=== PATIENT | female | born 1995 | race American Indian/Alaskan Native ===

== ENCOUNTER 2016-11-24 11:23 | Inpatient (IN) | payer MEDICARE ==
[2016-11-24 12:36] LABS: Urine Drugs of Abuse Note Disclamer
[2016-11-24 12:50] LABS: Bilirubin,Urine NEG (Negative); Blood,Urine NEG (Negative); Ketones,Urine NEG (Negative); Leukocyte Esterase,Urine NEG (Negative); Mucus,Urine FEW /HPF; Nitrite,Urine NEG (Negative); Protein,Urine <15 mg/dL mg/dL (Negative); Urobilinogen,Urine < 2.0 mg/dL (<2.0); WBC,Urine < 1.0 /HPF (0.0-6.0)
[2016-11-24 12:59] LABS: Basophils % (Auto) 0.7 % (0.0-1.8); Eosinophils % (Auto) 0.7 % (0.0-4.3); Hematocrit 40.5 % (30.3-42.9); Hemoglobin 13.5 gm/dl (10.1-14.3); Mean Corpuscular HGB Conc 34 % (30-34); Mean Corpuscular Hemoglobin 31 pg (28-32); Mean Corpuscular Volume 94 fl (79-97); Platelet Count 363 K/mm3 (140-440); Red Blood Count 4.33 M/mm3 (3.65-5.03); Red Cell Distribution Width 15.9 % (13.2-15.2); White Blood Count 9.2 K/mm3 (4.5-11.0)
--- NOTE | 2016-11-24 13:03 | Emergency Department Report ---
HPI - General Chief Complaint: Psych Time Seen by Provider: 11/24/16 12:39 - HPI HPI: Chief complaint: Suicidal HPI: Patient is a 21-year-old female with a history of suicide attempt 2 years ago resulting in bradycardia requiring observation overnight. Patient states she was just recently discharged from [facility] 10 days ago or suicidal thoughts. Patient states she took for ecstasy pills but nothing else. Patient also has thoughts of cutting herself or jumping in front of a car. Patient also complains of auditory hallucinations. Patient states she did drink some vodka last night. Patient is requesting to go back to [facility] but states that they don't want to take her back due to some forgery problems. Patient states she was in [facility] just prior to her last visit to [facility]. Mode of arrival: private car Source: Patient old chart and nursing notes Began: Last night. Patient states she took the medication at midnight Duration: Recurrent episodes of suicide and depression Context: See above. The nursing notes. Quality: Pain-free Severity: 0 out of 10 Improved with: Nothing Worsened with: Nothing Associated signs and symptoms: See above ED Past Medical Hx - Past Medical History Hx Diabetes: No Hx Psychiatric Treatment: Yes (SCHIZOAFFECTIVE / ANXIETY DISORDER / HOMICIDE IDEATIONS) Hx Asthma: No Hx COPD: No - Surgical History Additional Surgical History: Eye surgery. - Social History Smoking Status: Current Every Day Smoker Substance Use Type: Alcohol, Other ED Review of Systems ROS: Stated complaint: SUICIDAL,HALLUCINATIONS Other details as noted in HPI ROS Constitutional: No fever ENT: No uri symptoms Cardiovascular: No chest pain Respiratory: No sob or cough GI: No nausea vomiting or diarrhea : No dysuria frequency or urgency, Skin: No rash Neuro: No focal weakness or numbness Psych: See HPI Jose/lymph: No edema Physical Exam - Physical Exam Vital Signs: Vital Signs 11/24/16 12:04 Temperature 98.4 F Pulse Rate 74 Respiratory 18 Rate Blood Pressure 130/76 O2 Sat by Pulse 99 Oximetry Physical Exam: GENERAL: The patient is well-developed well-nourished . HEENT: Normocephalic. Atraumatic. Extraocular motions are intact. Patient has moist mucous membranes. NECK: Supple. No meningitic signs are noted. There is no adenopathy noted. CHEST/LUNGS: Clear to auscultation. There is no respiratory distress noted. HEART/CARDIOVASCULAR: Regular. There is no tachycardia. There is no gallop rub or murmur. ABDOMEN: Abdomen is soft, nontender. Patient has normal bowel sounds. There is no abdominal distention. SKIN: There is no rash. There is no edema. There is no diaphoresis. NEURO: The patient is awake, alert, and oriented. The patient has an extremely flat affect. The patient is cooperative. The patient has no focal neurologic deficits. The patient has normal speech. MUSCULOSKELETAL: There is no tenderness or deformity. There is no limitation range of motion. There is no evidence of acute injury. ED Course Vital Signs 11/24/16 12:04 Temperature 98.4 F Pulse Rate 74 Respiratory 18 Rate Blood Pressure 130/76 O2 Sat by Pulse 99 Oximetry ED Medical Decision Making - Lab Data Result diagrams: 11/24/16 12:48 11/24/16 12:48 Laboratory Tests 11/24/16 11/24/16 11/24/16 12:30 12:30 12:48 Ur Leukocyte Esterase Neg Urine WBC (Auto) < 1.0 Urine RBC (Auto) 3.0 U Epithel Cells (Auto) 2.0 Urine HCG, Qual Negative Salicylates Acetaminophen U Benzodiazepines Scrn Presumptive positive U Marijuana (THC) Screen Presumptive positive Plasma/Serum Alcohol < 0.01 11/24/16 11/24/16 12:48 12:48 Ur Leukocyte Esterase Urine WBC (Auto) Urine RBC (Auto) U Epithel Cells (Auto) Urine HCG, Qual Salicylates < 0.3 L Acetaminophen < 15.0 U Benzodiazepines Scrn U Marijuana (THC) Screen Plasma/Serum Alcohol Laboratory Tests 11/24/16 12:48 Acetaminophen < 15.0 - EKG Data -: EKG Interpreted by Me EKG shows normal: sinus rhythm Rate: normal (with first-degree AV block 69) - EKG Data When compared to previous EKG there are: changes noted (first degree AV block has been seen before but resolved and has now returned.) 11/24/16 13:23 Previous EKG is read as a sinus bradycardia but the [place] interval appears unchanged to me. Critical care attestation.: If time is entered above; I have spent that time in minutes in the direct care of this critically ill patient, excluding procedure time. ED Disposition Clinical Impression: Acute psychosis, Substance abuse, First degree AV block Overdose Qualifiers: Encounter type: initial encounter Injury intent: intentional self-harm Qualified Code(s): T50.902A - Poisoning by unspecified drugs, medicaments and biological substances, intentional self-harm, initial encounter Disposition: OP ADMITTED IP TO THIS HOSP Is pt being admited?: Yes Does the pt Need Aspirin: No Condition: Fair Referrals: PRIMARY CARE,MD [Primary Care Provider] - 3-5 Days Time of Disposition: 14:56 (admit to the hospitalist)
[2016-11-24 13:19] LABS: Anion Gap 18 mmol/L; Blood Urea Nitrogen 11 mg/dL (7-17); Calcium 9.7 mg/dL (8.4-10.2); Carbon Dioxide 24 mmol/L (22-30); Chloride 97.8 mmol/L (98-107); Glucose 87 mg/dL (65-100); Potassium 3.4 mmol/L (3.6-5.0); Sodium 136 mmol/L (137-145)
[2016-11-24] MEDS ORDERED: K-DUR PO ONE (13:44)
--- NOTE | 2016-11-24 15:17 | History and Physical Report ---
History of Present Illness Date of examination: 11/24/16 Date of admission: 11/24/16 Chief complaint: Suicidal attempt by taking Ecstacy pills History of present illness: 21-year-old obese -Pak[place] female patient with significant past medical history of suicidal attempt, admitted to [facility], discharged 10 days ago Was brought to the emergency room with history of taking ecstasy pills to harm herself. Patient also has visual and auditory hallucinations, patient has thoughts of cutting herself and jumping in front of a car. Patient denies any chest pain or shortness of breath, denies nausea vomiting or abdominal pain No history of fever or urinary symptoms Complains of mild dizziness Past History Past Medical History: other (suicidal attempt, psychosis, bradycardia) Past Surgical History: Social history: lives with family, smoking, alcohol abuse, other (recreational drug use) Family history: hypertension Medications and Allergies Allergies Allergy/AdvReac Type Severity Reaction Status Date / Time quetiapine fumarate Allergy Seizure Verified 11/24/16 12:03 [From Seroquel] aripiprazole [From Abilify] AdvReac "SHANTELL" Verified 11/24/16 12:03 divalproex sodium AdvReac Unknown Verified 11/24/16 12:03 [From Depakote] haloperidol [From Haldol] AdvReac Unknown Verified 11/24/16 12:03 haloperidol lactate AdvReac Unknown Verified 11/24/16 12:03 [From Haldol] risperidone [From Risperdal] AdvReac Unknown Verified 11/24/16 12:03 ziprasidone HCl [From Geodon] AdvReac Unknown Verified 11/24/16 12:03 ziprasidone mesylate AdvReac Unknown Verified 11/24/16 12:03 [From Geodon] Review of Systems Constitutional: no weight loss, no weight gain Ears, nose, mouth and throat: no nasal congestion, no nasal discharge Cardiovascular: no chest pain, no palpitations Respiratory: no cough, no shortness of breath Gastrointestinal: no abdominal pain, no nausea, no vomiting Genitourinary Female: no dysuria, no hematuria Musculoskeletal: no myalgias, no arthritis Integumentary: no rash, no lesions Neurological: no paralysis, no seizures Psychiatric: suicidal ideation, hallucinations, paranoia Endocrine: no cold intolerance, no heat intolerance, no polydipsia, no polyuria Hematologic/Lymphatic: no easy bruising, no easy bleeding Allergic/Immunologic: no urticaria, no allergic rhinitis Exam - Constitutional Vitals: Temp Pulse Resp BP Pulse Ox 98.4 F 74 18 130/76 99 11/24/16 12:04 11/24/16 12:04 11/24/16 12:04 11/24/16 12:04 11/24/16 12:04 General appearance: Present: no acute distress, well-nourished, other ( psychotic at times) - EENT Eyes: Present: PERRL, EOM intact - Neck Neck: Present: supple, normal ROM - Respiratory Respiratory effort: normal Respiratory: bilateral: diminished, negative: rales, rhonchi, wheezing - Cardiovascular Rhythm: regular Heart Sounds: Present: S1 & S2 - Extremities Extremities: no ischemia, pulses intact, pulses symmetrical Peripheral Pulses: within normal limits - Abdominal General gastrointestinal: Present: soft, non-tender, non-distended, normal bowel sounds - Integumentary Integumentary: Present: clear, warm - Musculoskeletal Musculoskeletal: strength equal bilaterally - Psychiatric Psychiatric: other (hallucinations/psychotic/confused at times) - Neurologic Neurologic: moves all extremities Results - Labs CBC & Chem 7: 11/24/16 12:48 11/24/16 12:48 Labs: Abnormal lab results 11/24/16 11/24/16 11/24/16 Range/Units 12:48 12:48 12:48 RDW 15.9 H (13.2-15.2) % [place] % (Auto) 7.8 H (0.0-7.3) % Sodium 136 L (137-145) mmol/L Potassium 3.4 L (3.6-5.0) mmol/L Chloride 97.8 L (98-107) mmol/L Salicylates < 0.3 L (2.8-20.0) mg/dL Assessment and Plan --Suicidal attempt/drug overdose Suicidal watch 1013 status IV fluids, supportive care --Acute psychosis Probably secondary to overdose with Ecstacy Supportive care, psych consult for assistance with management --Hypokalemia Replenish per protocol and monitor levels --Substance abuse Counseling done patient strongly advised to quit recreational drug use --Ongoing tobacco use Smoking cessation counseling done we will consult smoking cessation again Once patient is more stable --DVT prophylaxis With Lovenox --Full code --DC planning; possible discharge and transfer to inpatient psych facility When medically stable Patient's condition treatment plan discussed in detail with the patient, her nurse as well as the ED physician
[2016-11-24] MEDS ORDERED: NACL 0.9% 1000 ML 1,000 ML IV SCH (16:00)
[2016-11-24] MEDS: PEPCID PO SCH (21:46)
[2016-11-24] MEDS: LOVENOX SUB-Q SCH (21:46)
--- NOTE | 2016-11-25 00:01 | Consultation ---
History of Present Illness - Reason for Consult Consult date: 11/24/16 Reason for consult: recent suicide attempt via overdose - Chief Complaint Chief complaint: Suicidal attempt by taking Ecstacy pills - History of Present Psychiatric Illness This is a 21 year old likely undomiciled female with a past psychiatric history of PTSD and likely Bipolar Disorder with psychotic features or schizoaffective disorder (per history provided by the patient), who presents to the ER with a reported overdose on Ectasy. I have reviewed several documents that suggest that the patient is experiencing acute psychosis. Upon examination,the patient was using speech in a logical and linear manner. Her thought process was somewhat tangential and perseverative on some persecutory theme, whose veracity is yet undetermined. She frequently mentioned how suicidal she was and how she requires an inpatient hospitalization. During the conversation, she mentioned she needed to be hospitalized to evade imprisonment for an attempted murder charge. Her affect was incongruent and she did not comport well with me during the interview. Given the above information, there is a likelihood that the patient is experiencing some form of psychosis, whose etiology is unclear at the present. The differential includes acute drug intoxication and subsequent withdrawal, a primary psychotic process (ie an episode of either Bipolar disorder with psychosis or schizoaffective disorder), or malingering symptoms to avoid imprisonment. Medications and Allergies Allergies Allergy/AdvReac Type Severity Reaction Status Date / Time quetiapine fumarate Allergy Seizure Verified 11/24/16 12:03 [From Seroquel] aripiprazole [From Abilify] AdvReac "SHANTELL" Verified 11/24/16 12:03 divalproex sodium AdvReac Unknown Verified 11/24/16 12:03 [From Depakote] haloperidol [From Haldol] AdvReac Unknown Verified 11/24/16 12:03 haloperidol lactate AdvReac Unknown Verified 11/24/16 12:03 [From Haldol] risperidone [From Risperdal] AdvReac Unknown Verified 11/24/16 12:03 ziprasidone HCl [From Geodon] AdvReac Unknown Verified 11/24/16 12:03 ziprasidone mesylate AdvReac Unknown Verified 11/24/16 12:03 [From Geodon] Active Meds: Active Medications Enoxaparin Sodium (Lovenox) 40 mg SUB-Q QDAY@2200 JOSHUA Last Admin: 11/24/16 21:46 Dose: 40 mg Famotidine (Pepcid) 20 mg PO BID JOSHUA Last Admin: 11/24/16 21:46 Dose: 20 mg Sodium Chloride (Nacl 0.9% 1000 Ml) 1,000 mls @ 75 mls/hr IV DIRECT JOSHUA Lorazepam (Ativan) 1 mg IV Q6H PRN PRN Reason: Agitation Mental Status Exam - Vital signs Last Vital Signs Temp 97.5 F L 11/24/16 22:14 Pulse 65 11/24/16 22:14 Resp 20 11/24/16 22:14 BP 100/58 11/24/16 22:14 Pulse Ox 99 11/24/16 20:00 Results Result Diagrams: 11/24/16 12:48 11/24/16 12:48 All other labs normal. Assessment and Plan Assessment and plan: The plan is to obtain collateral from her mother and to continue to observe and evaluate for the presence or absence of a consistent narrative about her symptoms. This will likely inform us about the nature of her current presentation and the likely course of action upon being medically cleared. To help facilitate the process, we can complete a drug screening for ectasy. Upon reexamination tomorrow, the need to provide pharmacotheraputic intervention will be determined.
[2016-11-25 05:39] LABS: Anion Gap 19 mmol/L; BUN/Creatinine Ratio 14.54; Blood Urea Nitrogen 16 mg/dL (7-17); Calcium 8.9 mg/dL (8.4-10.2); Carbon Dioxide 20 mmol/L (22-30); Chloride 101.1 mmol/L (98-107); Glucose 93 mg/dL (65-100); Magnesium 2.1 mg/dL (1.7-2.3); Potassium 3.7 mmol/L (3.6-5.0); Sodium 136 mmol/L (137-145)
[2016-11-25] MEDS: PEPCID PO SCH ×2 (09:56→21:14)
[2016-11-25] MEDS ORDERED: FLUARIX QUAD 2016-2017(36 MOS+) IM ONE (12:00)
--- NOTE | 2016-11-25 13:45 | Progress Note ---
Assessment and Plan Assessment and plan: 1. Suicide attempt. Psychiatry following. Continue 1013 status. 2. Acute psychosis. Continue medications as per psychiatry recommendations. 3. Ecstasy overdose/substance abuse. Counseling has been done and patient strongly advised to quit recreational drug use. Psychiatry following. 4. Tobacco use. Cessation counseling has been completed. 5. DVT prophylaxis. Continue Lovenox. 6. Disposition. DC planning with possible discharge and transfer to inpatient psych facility per psychiatry recommendations. History Interval history: 21-year-old obese -[place] female patient with significant past medical history of suicidal attempt, admitted to [facility], discharged 10 days ago Was brought to the emergency room with history of taking ecstasy pills to harm herself. Patient also has visual and auditory hallucinations, patient has thoughts of cutting herself and jumping in front of a car. Hospitalist Physical - Constitutional Vitals: Temp Pulse Resp BP Pulse Ox 98.6 F 86 16 115/76 99 11/25/16 08:00 11/25/16 08:00 11/25/16 08:00 11/25/16 08:00 11/24/16 20:00 General appearance: Present: no acute distress, well-nourished, other ( psychotic at times) - EENT Eyes: Present: PERRL, EOM intact ENT: hearing intact, clear oral mucosa, dentition normal - Neck Neck: Present: supple, normal ROM - Respiratory Respiratory effort: normal Respiratory: bilateral: CTA - Cardiovascular Rhythm: regular Heart Sounds: Present: S1 & S2. Absent: gallop, rub - Extremities Extremities: no ischemia, No edema, Full ROM - Abdominal General gastrointestinal: soft, non-tender, non-distended, normal bowel sounds - Integumentary Integumentary: Present: clear, warm, dry - Neurologic Neurologic: CNII-XII intact, moves all extremities Results - Labs CBC & Chem 7: 11/24/16 12:48 11/25/16 04:42 Labs: Laboratory Last Values WBC 9.2 K/mm3 (4.5-11.0) 11/24/16 12:48 RBC 4.33 M/mm3 (3.65-5.03) 11/24/16 12:48 Hgb 13.5 gm/dl (10.1-14.3) 11/24/16 12:48 Hct 40.5 % (30.3-42.9) 11/24/16 12:48 MCV 94 fl (79-97) 11/24/16 12:48 MCH 31 pg (28-32) 11/24/16 12:48 MCHC 34 % (30-34) 11/24/16 12:48 RDW 15.9 % (13.2-15.2) H 11/24/16 12:48 Plt Count 363 K/mm3 (140-440) 11/24/16 12:48 Lymph % (Auto) 22.1 % (13.4-35.0) 11/24/16 12:48 [place] % (Auto) 7.8 % (0.0-7.3) H 11/24/16 12:48 Eos % (Auto) 0.7 % (0.0-4.3) 11/24/16 12:48 Baso % (Auto) 0.7 % (0.0-1.8) 11/24/16 12:48 Lymph # 2.0 K/mm3 (1.2-5.4) 11/24/16 12:48 [place] # 0.7 K/mm3 (0.0-0.8) 11/24/16 12:48 Eos # 0.1 K/mm3 (0.0-0.4) 11/24/16 12:48 Baso # 0.1 K/mm3 (0.0-0.1) 11/24/16 12:48 Seg Neutrophils % 68.7 % (40.0-70.0) 11/24/16 12:48 Seg Neutrophils # 6.3 K/mm3 (1.8-7.7) 11/24/16 12:48 Sodium 136 mmol/L (137-145) L 11/25/16 04:42 Potassium 3.7 mmol/L (3.6-5.0) 11/25/16 04:42 Chloride 101.1 mmol/L (98-107) 11/25/16 04:42 Carbon Dioxide 20 mmol/L (22-30) L 11/25/16 04:42 Anion Gap 19 mmol/L 11/25/16 04:42 BUN 16 mg/dL (7-17) 11/25/16 04:42 Creatinine 1.1 mg/dL (0.7-1.2) 11/25/16 04:42 Estimated GFR > 60 ml/min 11/25/16 04:42 BUN/Creatinine Ratio 14.54 % 11/25/16 04:42 Glucose 93 mg/dL (65-100) 11/25/16 04:42 Calcium 8.9 mg/dL (8.4-10.2) 11/25/16 04:42 Magnesium 2.1 mg/dL (1.7-2.3) 11/25/16 04:42 Total Creatine Kinase 393 units/L (30-135) H 11/24/16 12:48 Urine Color Yellow (Yellow) 11/24/16 12:30 Urine Turbidity Clear (Clear) 11/24/16 12:30 Urine pH 7.0 (5.0-7.0) 11/24/16 12:30 Ur Specific [place] 1.010 (1.003-1.030) 11/24/16 12:30 Urine Protein <15 mg/dl mg/dL (Negative) 11/24/16 12:30 Urine Glucose (UA) Neg mg/dL (Negative) 11/24/16 12:30 Urine Ketones Neg mg/dL (Negative) 11/24/16 12:30 Urine Blood Neg (Negative) 11/24/16 12:30 Urine Nitrite Neg (Negative) 11/24/16 12:30 Urine Bilirubin Neg (Negative) 11/24/16 12:30 Urine Urobilinogen < 2.0 mg/dL (<2.0) 11/24/16 12:30 Ur Leukocyte Esterase Neg (Negative) 11/24/16 12:30 Urine WBC (Auto) < 1.0 /HPF (0.0-6.0) 11/24/16 12:30 Urine RBC (Auto) 3.0 /HPF (0.0-6.0) 11/24/16 12:30 U Epithel Cells (Auto) 2.0 /HPF (0-13.0) 11/24/16 12:30 Urine Mucus Few /HPF 11/24/16 12:30 Urine HCG, Qual Negative (Negative) 11/24/16 12:30 Salicylates < 0.3 mg/dL (2.8-20.0) L 11/24/16 12:48 Urine Opiates Screen Presumptive negative 11/24/16 12:30 Urine Methadone Screen Presumptive negative 11/24/16 12:30 Acetaminophen < 15.0 ug/mL (10.0-30.0) 11/24/16 12:48 Ur Barbiturates Screen Presumptive negative 11/24/16 12:30 Ur Phencyclidine Scrn Presumptive negative 11/24/16 12:30 Ur Amphetamines Screen Presumptive negative 11/24/16 12:30 U Benzodiazepines Scrn Presumptive positive 11/24/16 12:30 Urine Cocaine Screen Presumptive negative 11/24/16 12:30 U Marijuana (THC) Screen Presumptive positive 11/24/16 12:30 Drugs of Abuse Note Disclamer 11/24/16 12:30 Plasma/Serum Alcohol < 0.01 gm% (0-0.07) 11/24/16 12:48
[2016-11-25] MEDS: LOVENOX SUB-Q SCH (21:14)
[2016-11-26] MEDS: PEPCID PO SCH ×2 (10:07→22:45)
--- NOTE | 2016-11-26 13:35 | Progress Note ---
Assessment and Plan Assessment and plan: 1. Suicide attempt. Psychiatry following. Continue 1013 status. 2. Acute psychosis. Continue medications as per psychiatry recommendations. 3. Ecstasy overdose/substance abuse. Counseling has been done and patient strongly advised to quit recreational drug use. Psychiatry following. 4. Tobacco use. Cessation counseling has been completed. 5. DVT prophylaxis. Continue Lovenox. 6. Disposition. DC planning with possible discharge and transfer to inpatient psych facility per psychiatry recommendations. History Interval history: 21-year-old obese -[place] female patient with significant past medical history of suicidal attempt, admitted to [facility], discharged 10 days ago Was brought to the emergency room with history of taking ecstasy pills to harm herself. Patient reports visual hallucinations last night of feces coming through the wall. Hospitalist Physical - Constitutional Vitals: Temp Pulse Resp BP Pulse Ox 98.7 F 76 16 102/57 100 11/26/16 08:00 11/26/16 10:00 11/26/16 08:00 11/26/16 08:00 11/26/16 10:00 General appearance: Present: no acute distress, well-nourished, other ( psychotic at times) - EENT Eyes: Present: PERRL, EOM intact ENT: hearing intact, clear oral mucosa, dentition normal - Neck Neck: Present: supple, normal ROM - Respiratory Respiratory effort: normal Respiratory: bilateral: CTA - Cardiovascular Rhythm: regular Heart Sounds: Present: S1 & S2. Absent: gallop, rub - Extremities Extremities: no ischemia, No edema, Full ROM - Abdominal General gastrointestinal: soft, non-tender, non-distended, normal bowel sounds - Integumentary Integumentary: Present: clear, warm, dry - Neurologic Neurologic: CNII-XII intact, moves all extremities Results - Labs CBC & Chem 7: 11/24/16 12:48 11/25/16 04:42 Labs: Laboratory Last Values WBC 9.2 K/mm3 (4.5-11.0) 11/24/16 12:48 RBC 4.33 M/mm3 (3.65-5.03) 11/24/16 12:48 Hgb 13.5 gm/dl (10.1-14.3) 11/24/16 12:48 Hct 40.5 % (30.3-42.9) 11/24/16 12:48 MCV 94 fl (79-97) 11/24/16 12:48 MCH 31 pg (28-32) 11/24/16 12:48 MCHC 34 % (30-34) 11/24/16 12:48 RDW 15.9 % (13.2-15.2) H 11/24/16 12:48 Plt Count 363 K/mm3 (140-440) 11/24/16 12:48 Lymph % (Auto) 22.1 % (13.4-35.0) 11/24/16 12:48 [place] % (Auto) 7.8 % (0.0-7.3) H 11/24/16 12:48 Eos % (Auto) 0.7 % (0.0-4.3) 11/24/16 12:48 Baso % (Auto) 0.7 % (0.0-1.8) 11/24/16 12:48 Lymph # 2.0 K/mm3 (1.2-5.4) 11/24/16 12:48 [place] # 0.7 K/mm3 (0.0-0.8) 11/24/16 12:48 Eos # 0.1 K/mm3 (0.0-0.4) 11/24/16 12:48 Baso # 0.1 K/mm3 (0.0-0.1) 11/24/16 12:48 Seg Neutrophils % 68.7 % (40.0-70.0) 11/24/16 12:48 Seg Neutrophils # 6.3 K/mm3 (1.8-7.7) 11/24/16 12:48 Sodium 136 mmol/L (137-145) L 11/25/16 04:42 Potassium 3.7 mmol/L (3.6-5.0) 11/25/16 04:42 Chloride 101.1 mmol/L (98-107) 11/25/16 04:42 Carbon Dioxide 20 mmol/L (22-30) L 11/25/16 04:42 Anion Gap 19 mmol/L 11/25/16 04:42 BUN 16 mg/dL (7-17) 11/25/16 04:42 Creatinine 1.1 mg/dL (0.7-1.2) 11/25/16 04:42 Estimated GFR > 60 ml/min 11/25/16 04:42 BUN/Creatinine Ratio 14.54 % 11/25/16 04:42 Glucose 93 mg/dL (65-100) 11/25/16 04:42 Calcium 8.9 mg/dL (8.4-10.2) 11/25/16 04:42 Magnesium 2.1 mg/dL (1.7-2.3) 11/25/16 04:42 Total Creatine Kinase 393 units/L (30-135) H 11/24/16 12:48 Urine Color Yellow (Yellow) 11/24/16 12:30 Urine Turbidity Clear (Clear) 11/24/16 12:30 Urine pH 7.0 (5.0-7.0) 11/24/16 12:30 Ur Specific [place] 1.010 (1.003-1.030) 11/24/16 12:30 Urine Protein <15 mg/dl mg/dL (Negative) 11/24/16 12:30 Urine Glucose (UA) Neg mg/dL (Negative) 11/24/16 12:30 Urine Ketones Neg mg/dL (Negative) 11/24/16 12:30 Urine Blood Neg (Negative) 11/24/16 12:30 Urine Nitrite Neg (Negative) 11/24/16 12:30 Urine Bilirubin Neg (Negative) 11/24/16 12:30 Urine Urobilinogen < 2.0 mg/dL (<2.0) 11/24/16 12:30 Ur Leukocyte Esterase Neg (Negative) 11/24/16 12:30 Urine WBC (Auto) < 1.0 /HPF (0.0-6.0) 11/24/16 12:30 Urine RBC (Auto) 3.0 /HPF (0.0-6.0) 11/24/16 12:30 U Epithel Cells (Auto) 2.0 /HPF (0-13.0) 11/24/16 12:30 Urine Mucus Few /HPF 11/24/16 12:30 Urine HCG, Qual Negative (Negative) 11/24/16 12:30 Salicylates < 0.3 mg/dL (2.8-20.0) L 11/24/16 12:48 Urine Opiates Screen Presumptive negative 11/24/16 12:30 Urine Methadone Screen Presumptive negative 11/24/16 12:30 Acetaminophen < 15.0 ug/mL (10.0-30.0) 11/24/16 12:48 Ur Barbiturates Screen Presumptive negative 11/24/16 12:30 Ur Phencyclidine Scrn Presumptive negative 11/24/16 12:30 Ur Amphetamines Screen Presumptive negative 11/24/16 12:30 U Benzodiazepines Scrn Presumptive positive 11/24/16 12:30 Urine Cocaine Screen Presumptive negative 11/24/16 12:30 U Marijuana (THC) Screen Presumptive positive 11/24/16 12:30 Drugs of Abuse Note Disclamer 11/24/16 12:30 Plasma/Serum Alcohol < 0.01 gm% (0-0.07) 11/24/16 12:48
[2016-11-26] MEDS: LOVENOX SUB-Q SCH (22:45)
[2016-11-27] MEDS: ATIVAN IV PRN (04:16)
[2016-11-27] MEDS: PEPCID PO SCH ×2 (10:07→21:52)
--- NOTE | 2016-11-27 14:58 | Progress Note ---
Assessment and Plan Assessment and plan: 1. Suicide attempt. Psychiatry following. Continue 1013 status. 2. Acute psychosis. Continue medications as per psychiatry recommendations. 3. Ecstasy overdose/substance abuse. Counseling has been done and patient strongly advised to quit recreational drug use. Psychiatry following. 4. Tobacco use. Cessation counseling has been completed. 5. DVT prophylaxis. Continue Lovenox. She is medically cleared for inpatient psyche History Interval history: f/u suicidal attempt Patient seen at the bedside; admits to auditary hallucinations- voices tell her to kill herself and that she is better off Hospitalist Physical - Constitutional Vitals: Temp Pulse Resp BP Pulse Ox 98.0 F 101 H 18 108/65 100 11/26/16 20:45 11/27/16 03:00 11/26/16 20:45 11/26/16 20:45 11/26/16 20:45 General appearance: Present: no acute distress, well-nourished, other ( psychotic at times) - EENT Eyes: Present: PERRL, EOM intact. Absent: scleral icterus, conjunctival injection ENT: hearing intact, clear oral mucosa, no oropharyngeal erythema, no poor dentition - Neck Neck: Present: supple, normal ROM. Absent: enlarged thyroid, masses or JVD - Respiratory Respiratory effort: normal Respiratory: negative: diminished, rales, rhonchi, wheezing - Cardiovascular Rhythm: regular Heart Sounds: Present: S1 & S2. Absent: gallop - Extremities Extremities: no ischemia, pulses intact, pulses symmetrical, No edema Peripheral Pulses: within normal limits - Abdominal General gastrointestinal: soft, non-tender, non-distended, normal bowel sounds - Integumentary Integumentary: Present: clear - Psychiatric Psychiatric: agitated, other (auditary hallucinations ) - Neurologic Neurologic: CNII-XII intact, moves all extremities Results - Labs CBC & Chem 7: 11/24/16 12:48 11/25/16 04:42 Labs: Laboratory Last Values WBC 9.2 K/mm3 (4.5-11.0) 11/24/16 12:48 RBC 4.33 M/mm3 (3.65-5.03) 11/24/16 12:48 Hgb 13.5 gm/dl (10.1-14.3) 11/24/16 12:48 Hct 40.5 % (30.3-42.9) 11/24/16 12:48 MCV 94 fl (79-97) 11/24/16 12:48 MCH 31 pg (28-32) 11/24/16 12:48 MCHC 34 % (30-34) 11/24/16 12:48 RDW 15.9 % (13.2-15.2) H 11/24/16 12:48 Plt Count 363 K/mm3 (140-440) 11/24/16 12:48 Lymph % (Auto) 22.1 % (13.4-35.0) 11/24/16 12:48 [place] % (Auto) 7.8 % (0.0-7.3) H 11/24/16 12:48 Eos % (Auto) 0.7 % (0.0-4.3) 11/24/16 12:48 Baso % (Auto) 0.7 % (0.0-1.8) 11/24/16 12:48 Lymph # 2.0 K/mm3 (1.2-5.4) 11/24/16 12:48 [place] # 0.7 K/mm3 (0.0-0.8) 11/24/16 12:48 Eos # 0.1 K/mm3 (0.0-0.4) 11/24/16 12:48 Baso # 0.1 K/mm3 (0.0-0.1) 11/24/16 12:48 Seg Neutrophils % 68.7 % (40.0-70.0) 11/24/16 12:48 Seg Neutrophils # 6.3 K/mm3 (1.8-7.7) 11/24/16 12:48 Sodium 136 mmol/L (137-145) L 11/25/16 04:42 Potassium 3.7 mmol/L (3.6-5.0) 11/25/16 04:42 Chloride 101.1 mmol/L (98-107) 11/25/16 04:42 Carbon Dioxide 20 mmol/L (22-30) L 11/25/16 04:42 Anion Gap 19 mmol/L 11/25/16 04:42 BUN 16 mg/dL (7-17) 11/25/16 04:42 Creatinine 1.1 mg/dL (0.7-1.2) 11/25/16 04:42 Estimated GFR > 60 ml/min 11/25/16 04:42 BUN/Creatinine Ratio 14.54 % 11/25/16 04:42 Glucose 93 mg/dL (65-100) 11/25/16 04:42 Calcium 8.9 mg/dL (8.4-10.2) 11/25/16 04:42 Magnesium 2.1 mg/dL (1.7-2.3) 11/25/16 04:42 Total Creatine Kinase 393 units/L (30-135) H 11/24/16 12:48 Urine Color Yellow (Yellow) 11/24/16 12:30 Urine Turbidity Clear (Clear) 11/24/16 12:30 Urine pH 7.0 (5.0-7.0) 11/24/16 12:30 Ur Specific [place] 1.010 (1.003-1.030) 11/24/16 12:30 Urine Protein <15 mg/dl mg/dL (Negative) 11/24/16 12:30 Urine Glucose (UA) Neg mg/dL (Negative) 11/24/16 12:30 Urine Ketones Neg mg/dL (Negative) 11/24/16 12:30 Urine Blood Neg (Negative) 11/24/16 12:30 Urine Nitrite Neg (Negative) 11/24/16 12:30 Urine Bilirubin Neg (Negative) 11/24/16 12:30 Urine Urobilinogen < 2.0 mg/dL (<2.0) 11/24/16 12:30 Ur Leukocyte Esterase Neg (Negative) 11/24/16 12:30 Urine WBC (Auto) < 1.0 /HPF (0.0-6.0) 11/24/16 12:30 Urine RBC (Auto) 3.0 /HPF (0.0-6.0) 11/24/16 12:30 U Epithel Cells (Auto) 2.0 /HPF (0-13.0) 11/24/16 12:30 Urine Mucus Few /HPF 11/24/16 12:30 Urine HCG, Qual Negative (Negative) 11/24/16 12:30 Salicylates < 0.3 mg/dL (2.8-20.0) L 11/24/16 12:48 Urine Opiates Screen Presumptive negative 11/24/16 12:30 Urine Methadone Screen Presumptive negative 11/24/16 12:30 Acetaminophen < 15.0 ug/mL (10.0-30.0) 11/24/16 12:48 Ur Barbiturates Screen Presumptive negative 11/24/16 12:30 Ur Phencyclidine Scrn Presumptive negative 11/24/16 12:30 Ur Amphetamines Screen Presumptive negative 11/24/16 12:30 U Benzodiazepines Scrn Presumptive positive 11/24/16 12:30 Urine Cocaine Screen Presumptive negative 11/24/16 12:30 U Marijuana (THC) Screen Presumptive positive 11/24/16 12:30 Drugs of Abuse Note Disclamer 11/24/16 12:30 Plasma/Serum Alcohol < 0.01 gm% (0-0.07) 11/24/16 12:48
--- NOTE | 2016-11-27 18:28 | Progress Note ---
Subjective - Reason for Consult Consult date: 11/27/16 Reason for consult: follow up for psychiatric management - Chief Complaint Chief complaint: Suicidal attempt by taking Ecstasy pills Mental Status Exam - Vital signs Last Vital Signs Temp 98.0 F 11/26/16 20:45 Pulse 101 H 11/27/16 11:00 Resp 18 11/26/16 20:45 BP 108/65 11/26/16 20:45 Pulse Ox 100 11/26/16 20:45 - Exam Narrative exam: She is reporting auditory hallucinations and depression. She discussed how she will go to custodial if she does not go to a 30 day treatment facility for substance abuse and mental health. Patient relates sleep is: poor Energy levels are: fair Appetite is: fair Appearance: Patient appears much older than stated age, she appears to malnutritioned Behavior: cooperative Cooperation: cooperative Insight/Judgment: limited/limited Level of cognition: fair Level of consciousness: alert Knowledge: fair Speech: regular rate and rhythm Thought processes: logical/goal oriented Thought content: depression Perceptions: auditory hallucinations Orientation: time, place, person Assessment and Plan The motivation for outpatient treatment and need for a supportive/therapeutic environment is best accomplished in a partial hospitalization setting/lodging. The assessment services department will facilitate her admission there. We recommend a voluntary status for her to accomplish this goal of treatment. The recommendations were discussed with Dr. Grant, hospitalist.
[2016-11-27] MEDS: LOVENOX SUB-Q SCH (21:52)
[2016-11-28] MEDS: ATIVAN IV PRN ×2 (02:02→10:49)
[2016-11-28 06:12] LABS: Anion Gap 18 mmol/L; BUN/Creatinine Ratio 18.88; Blood Urea Nitrogen 17 mg/dL (7-17); Calcium 8.8 mg/dL (8.4-10.2); Carbon Dioxide 21 mmol/L (22-30); Chloride 103.7 mmol/L (98-107); Glucose 90 mg/dL (65-100); Potassium 3.8 mmol/L (3.6-5.0); Sodium 139 mmol/L (137-145)
[2016-11-28] MEDS: PEPCID PO SCH (10:32)
[2016-11-28] MEDS ORDERED: FLUARIX QUAD 2016-2017(36 MOS+) IM ONE (12:00)
--- NOTE | 2016-11-28 15:04 | Progress Note ---
Assessment and Plan Assessment and plan: 1. Suicide attempt. Psychiatry following. Continue 1013 status. 2. Acute psychosis. Continue medications as per psychiatry recommendations. 3. Ecstasy overdose/substance abuse. Counseling has been done and patient strongly advised to quit recreational drug use. Psychiatry following. 4. Tobacco use. Cessation counseling has been completed. 5. DVT prophylaxis. Continue Lovenox. She is medically cleared for inpatient psyche -awaiting placement History Interval history: f/u suicidal attempt Patient seen at the bedside; report that she feels better today Hospitalist Physical - Constitutional Vitals: Temp Pulse Resp BP Pulse Ox 98.9 F 65 20 127/76 99 11/28/16 08:00 11/28/16 08:21 11/28/16 08:00 11/28/16 08:00 11/27/16 20:36 General appearance: Present: no acute distress, well-nourished, other ( psychotic at times) - EENT Eyes: Present: PERRL, EOM intact. Absent: scleral icterus, exopthalmos ENT: hearing intact, clear oral mucosa, no oropharyngeal erythema, no poor dentition - Neck Neck: Present: supple, normal ROM. Absent: enlarged thyroid, masses or JVD - Respiratory Respiratory effort: normal Respiratory: negative: diminished, rales, rhonchi, wheezing - Cardiovascular Rhythm: regular Heart Sounds: Present: S1 & S2. Absent: gallop - Extremities Extremities: no ischemia, pulses intact, pulses symmetrical, No edema Peripheral Pulses: within normal limits - Abdominal General gastrointestinal: soft, non-tender, non-distended - Integumentary Integumentary: Present: clear - Psychiatric Psychiatric: cooperative - Neurologic Neurologic: CNII-XII intact, focal deficits Results - Labs CBC & Chem 7: 11/24/16 12:48 11/28/16 04:00 Labs: Laboratory Last Values WBC 9.2 K/mm3 (4.5-11.0) 11/24/16 12:48 RBC 4.33 M/mm3 (3.65-5.03) 11/24/16 12:48 Hgb 13.5 gm/dl (10.1-14.3) 11/24/16 12:48 Hct 40.5 % (30.3-42.9) 11/24/16 12:48 MCV 94 fl (79-97) 11/24/16 12:48 MCH 31 pg (28-32) 11/24/16 12:48 MCHC 34 % (30-34) 11/24/16 12:48 RDW 15.9 % (13.2-15.2) H 11/24/16 12:48 Plt Count 363 K/mm3 (140-440) 11/24/16 12:48 Lymph % (Auto) 22.1 % (13.4-35.0) 11/24/16 12:48 [place] % (Auto) 7.8 % (0.0-7.3) H 11/24/16 12:48 Eos % (Auto) 0.7 % (0.0-4.3) 11/24/16 12:48 Baso % (Auto) 0.7 % (0.0-1.8) 11/24/16 12:48 Lymph # 2.0 K/mm3 (1.2-5.4) 11/24/16 12:48 [place] # 0.7 K/mm3 (0.0-0.8) 11/24/16 12:48 Eos # 0.1 K/mm3 (0.0-0.4) 11/24/16 12:48 Baso # 0.1 K/mm3 (0.0-0.1) 11/24/16 12:48 Seg Neutrophils % 68.7 % (40.0-70.0) 11/24/16 12:48 Seg Neutrophils # 6.3 K/mm3 (1.8-7.7) 11/24/16 12:48 Sodium 139 mmol/L (137-145) 11/28/16 04:00 Potassium 3.8 mmol/L (3.6-5.0) 11/28/16 04:00 Chloride 103.7 mmol/L (98-107) 11/28/16 04:00 Carbon Dioxide 21 mmol/L (22-30) L 11/28/16 04:00 Anion Gap 18 mmol/L 11/28/16 04:00 BUN 17 mg/dL (7-17) 11/28/16 04:00 Creatinine 0.9 mg/dL (0.7-1.2) 11/28/16 04:00 Estimated GFR > 60 ml/min 11/28/16 04:00 BUN/Creatinine Ratio 18.88 % 11/28/16 04:00 Glucose 90 mg/dL (65-100) 11/28/16 04:00 Calcium 8.8 mg/dL (8.4-10.2) 11/28/16 04:00 Magnesium 2.1 mg/dL (1.7-2.3) 11/25/16 04:42 Total Creatine Kinase 393 units/L (30-135) H 11/24/16 12:48 Urine Color Yellow (Yellow) 11/24/16 12:30 Urine Turbidity Clear (Clear) 11/24/16 12:30 Urine pH 7.0 (5.0-7.0) 11/24/16 12:30 Ur Specific [place] 1.010 (1.003-1.030) 11/24/16 12:30 Urine Protein <15 mg/dl mg/dL (Negative) 11/24/16 12:30 Urine Glucose (UA) Neg mg/dL (Negative) 11/24/16 12:30 Urine Ketones Neg mg/dL (Negative) 11/24/16 12:30 Urine Blood Neg (Negative) 11/24/16 12:30 Urine Nitrite Neg (Negative) 11/24/16 12:30 Urine Bilirubin Neg (Negative) 11/24/16 12:30 Urine Urobilinogen < 2.0 mg/dL (<2.0) 11/24/16 12:30 Ur Leukocyte Esterase Neg (Negative) 11/24/16 12:30 Urine WBC (Auto) < 1.0 /HPF (0.0-6.0) 11/24/16 12:30 Urine RBC (Auto) 3.0 /HPF (0.0-6.0) 11/24/16 12:30 U Epithel Cells (Auto) 2.0 /HPF (0-13.0) 11/24/16 12:30 Urine Mucus Few /HPF 11/24/16 12:30 Urine HCG, Qual Negative (Negative) 11/24/16 12:30 Salicylates < 0.3 mg/dL (2.8-20.0) L 11/24/16 12:48 Urine Opiates Screen Presumptive negative 11/24/16 12:30 Urine Methadone Screen Presumptive negative 11/24/16 12:30 Acetaminophen < 15.0 ug/mL (10.0-30.0) 11/24/16 12:48 Ur Barbiturates Screen Presumptive negative 11/24/16 12:30 Ur Phencyclidine Scrn Presumptive negative 11/24/16 12:30 Ur Amphetamines Screen Presumptive negative 11/24/16 12:30 U Benzodiazepines Scrn Presumptive positive 11/24/16 12:30 Urine Cocaine Screen Presumptive negative 11/24/16 12:30 U Marijuana (THC) Screen Presumptive positive 11/24/16 12:30 Drugs of Abuse Note Disclamer 11/24/16 12:30 Plasma/Serum Alcohol < 0.01 gm% (0-0.07) 11/24/16 12:48
[2016-11-28 16:34] VITALS: BP 120/78
--- NOTE | 2016-11-28 16:57 | Progress Note ---
Subjective - Reason for Consult Consult date: 11/28/16 Reason for consult: follow up for psychiatry - Chief Complaint Chief complaint: Suicidal attempt by taking Ecstasy pills Mental Status Exam - Vital signs Last Vital Signs Temp 97.6 F 11/28/16 16:00 Pulse 74 11/28/16 16:00 Resp 18 11/28/16 16:00 BP 120/78 11/28/16 16:00 Pulse Ox 99 11/27/16 20:36 - Exam Narrative exam: She is anxious about her upcoming admission to [facility]/[place]. She wants to participate in the program. She discussed depressive symptoms, anxiety, and denies auditory hallucinations today. Orientation: time, place, person Affect: depressed, anxious Mood: calm Thought Process: Intact Perceptions: none Speech: normal rate and pattern Concentration: focused Motor activity: normal Level of consciousness: alert Memory: Intact Sleep Symptoms: Difficulty Falling Asleep Interaction: cooperative, pleasant Assessment and Plan The motivation for outpatient treatment and need for a supportive/therapeutic environment is best accomplished in a partial hospitalization setting/lodging. The assessment services department will facilitate her admission there. We recommend a voluntary status for her to accomplish this goal of treatment. She will be transferred to [facility] later today. Patient denies concerns with this plan.
--- NOTE | 2016-11-29 07:16 | Discharge Summary ---
Providers - Providers Date of Admission: 11/24/16 16:17 Date of discharge: 11/29/16 Attending physician: BELLE GIMENEZ Primary care physician: [facility]AL CHECKER Hospitalization Reason for admission: acute psychosis Condition: Fair Hospital course: Miss Lee presented to the ER with acute psychosis with suicical ideation and overdose; she was evaluated by the psychiatrist and recommendations were made to place patient in inpatient psychiatry. She was medically cleared prior to discharge condition at discharge- stable 31 minutes spent preparing discharge Disposition: DISCHARGED TO HOME OR SELFCARE - Discharge Diagnoses (1) Acute psychosis Status: Acute (2) Overdose Status: Acute Qualifiers: Encounter type: initial encounter Injury intent: intentional self-harm Qualified Code(s): T50.902A - Poisoning by unspecified drugs, medicaments and biological substances, intentional self-harm, initial encounter (3) Substance abuse Status: Acute (4) Suicidal ideation Status: Acute Core Measure Documentation - Palliative Care Palliative Care/ Comfort Measures: Not Applicable - Core Measures Any of the following diagnoses?: none Exam - Constitutional Vitals: Temp Pulse Resp BP Pulse Ox 97.6 F 74 18 120/78 99 11/28/16 16:00 11/28/16 16:00 11/28/16 16:00 11/28/16 16:00 11/27/16 20:36 General appearance: Present: no acute distress - EENT Eyes: Present: PERRL, EOM intact. Absent: scleral icterus, conjunctival injection ENT: hearing intact, clear oral mucosa, no oropharyngeal erythema, no poor dentition - Neck Neck: Present: supple, normal ROM. Absent: enlarged thyroid, masses or JVD - Respiratory Respiratory effort: normal Respiratory: negative: diminished, rales, rhonchi, wheezing - Cardiovascular Rhythm: regular Heart Sounds: Present: S1 & S2. Absent: gallop - Extremities Extremities: no ischemia, pulses intact, pulses symmetrical - Abdominal General gastrointestinal: Present: soft, non-tender, normal bowel sounds Female genitourinary: Present: deferred - Integumentary Integumentary: Present: clear - Musculoskeletal Musculoskeletal: strength equal bilaterally - Psychiatric Psychiatric: no intact judgment & insight, no memory intact - Neurologic Neurologic: CNII-XII intact, moves all extremities Plan Activity: advance as tolerated Diet: regular Follow up with: PRIMARY CARE, [Primary Care Provider] - 3-5 Days
== END 2016-11-28 18:54 | DRG 918 ==
LOC: ED 11:23 → EEVIPCON 16:17 → 4A 16:17
PROVIDERS: ADMIT Internal Medicine; ATTEND Hospitalist
DX: T43.622A Poisoning by amphetamines, intentional self-harm, initial encounter (principal); F23 Brief psychotic disorder; T14.91 Suicide attempt; F25.9 Schizoaffective disorder, unspecified; F17.210 Nicotine dependence, cigarettes, uncomplicated; F31.9 Bipolar disorder, unspecified; F29 Unspecified psychosis not due to a substance or known physiological condition; I44.0 Atrioventricular block, first degree; E87.6 Hypokalemia; E66.9 Obesity, unspecified; Y92.89 Other specified places as the place of occurrence of the external cause; Z68.30 Body mass index [BMI] 30.0-30.9, adult; Z82.49 Family history of ischemic heart disease and other diseases of the circulatory system; Z88.8 Allergy status to other drugs, medicaments and biological substances
CPT/HCPCS: 36415; 80048; 80307; 80320; 81001; 81025; 82550; 83735; 85025; 90686; 93005; 93010; G0480; J1650; J2060

== ENCOUNTER 2017-04-06 09:02 | Emergency (ER) | payer MEDICARE ==
[2017-04-06] MEDS ORDERED: DUONEB *Not for PRN Use IH ONE (13:51)
[2017-04-06] MEDS ORDERED: DELTASONE PO ONE (13:51)
--- NOTE | 2017-04-06 14:20 | Emergency Department Report ---
Entered by RAQUEL MARTINEZ, acting as scribe for LAURA THOMPSON PA. - General Chief Complaint: Upper Respiratory Infection Stated Complaint: COUGH Time Seen by Provider: 04/06/17 13:49 Source: patient Mode of arrival: Ambulatory Limitations: No Limitations - History of Present Illness Initial Comments: 21 y/o female presents to the ED c/o productive cough with green sputum x 1 week. Associated symptoms include fever, chills,throat pain and wheezing but she denies chest pain or SOB. Pain is described as 8/10 on a severity scale and burning. Denies taking OTC meds. Allergic to quetiapine fumarate, aripiprazole, divalproex sodium, haloperidol, risperidol and ziprasidone. LMP: 03/23/17. Patient has a history of schizoaffective disorder, anxiety and homicidal ideation along with PTSD. MD Complaint: fever, cough, sore throat Onset/Timin -: week(s) Severity: severe Severity scale (0 -10): 8 Consistency: intermittent Improves With: rest Worsens With: other (cough) Context: other (none) Associated Symptoms: fever, chills, rhinorrhea, nasal congestion, sore throat, cough, other (wheezing). denies: myalgias, diaphoresis, headache, stiff neck, chest pain, shortness of breath, abdominal pain, nausea, vomiting, diarrhea, dysuria, rash, confusion, right sweats, weight loss, epistaxis, hoarseness, ear pain Treatments Prior to Arrival: none - Related Data Previous Rx's Medication Instructions Recorded Last Taken Type Albuterol Sulfate [Ventolin HFA] 2 puff IH Q4H PRN #1 [email or web address] 04/06/17 Unknown Rx Amoxicillin/K Clav Tab [Augmentin 1 tab PO Q12HR #20 tab 04/06/17 Unknown Rx 875 mg] Cetirizine HCl [ZyrTEC] 10 mg PO QDAY #14 capsule 04/06/17 Unknown Rx predniSONE [Deltasone] 50 mg PO QDAY #5 tab 04/06/17 Unknown Rx Allergies Allergy/AdvReac Type Severity Reaction Status Date / Time quetiapine fumarate Allergy Seizure Verified 04/06/17 09:28 [From Seroquel] aripiprazole [From Abilify] AdvReac "SHANTELL" Verified 04/06/17 09:28 divalproex sodium AdvReac Unknown Verified 04/06/17 09:28 [From Depakote] haloperidol [From Haldol] AdvReac Unknown Verified 04/06/17 09:28 haloperidol lactate AdvReac Unknown Verified 04/06/17 09:28 [From Haldol] risperidone [From Risperdal] AdvReac Unknown Verified 04/06/17 09:28 ziprasidone HCl [From Geodon] AdvReac Unknown Verified 04/06/17 09:28 ziprasidone mesylate AdvReac Unknown Verified 04/06/17 09:28 [From Geodon] ED Review of Systems Comment: All other systems reviewed and negative Constitutional: chills, fever. denies: malaise Eyes: denies: eye pain, eye discharge ENT: throat pain, congestion. denies: ear pain Respiratory: cough (productive with green ), wheezing. denies: orthopnea, shortness of breath, SOB with exertion, SOB at rest, stridor Cardiovascular: denies: chest pain, palpitations, edema, syncope Gastrointestinal: denies: abdominal pain, nausea, vomiting Skin: denies: rash Neurological: denies: headache, weakness ED Past Medical Hx - Past Medical History Previous Medical History?: Yes Hx Diabetes: No Hx Psychiatric Treatment: Yes (SCHIZOAFFECTIVE / ANXIETY DISORDER / HOMICIDE IDEATIONS/ PTSD) Hx Asthma: No Hx COPD: No - Surgical History Past Surgical History?: Yes Additional Surgical History: Eye surgery. - Family History Family history: hypertension - Social History Smoking Status: Current Every Day Smoker Substance Use Type: None - Medications Home Medications: Home Medications Medication Instructions Recorded Confirmed Last Taken Type Albuterol Sulfate [Ventolin HFA] 2 puff IH Q4H PRN #1 hfa.[email or web address] 04/06/17 Unknown Rx Amoxicillin/K Clav Tab [Augmentin 1 tab PO Q12HR #20 tab 04/06/17 Unknown Rx 875 mg] Cetirizine HCl [ZyrTEC] 10 mg PO QDAY #14 capsule 04/06/17 Unknown Rx predniSONE [Deltasone] 50 mg PO QDAY #5 tab 04/06/17 Unknown Rx ED Physical Exam - General Limitations: No Limitations General appearance: alert, in no apparent distress - Head Head exam: Present: atraumatic, normocephalic, normal inspection - Eye Eye exam: Present: normal appearance, PERRL, EOMI. Absent: conjunctival injection, periorbital swelling, periorbital tenderness Pupils: Present: normal accommodation - ENT ENT exam: Present: normal exam, normal orophraynx, mucous membranes moist, TM's normal bilaterally (congested without erythema), normal external ear exam, other (bilateral ears congested, nose congested with clear drainage. Bilateral TMs nontender to palpate.) - Neck Neck exam: Present: normal inspection, full ROM. Absent: tenderness - Respiratory Respiratory exam: Present: normal lung sounds bilaterally, wheezes (scattered to upper lung orona), other (dry cough). Absent: respiratory distress, rales, rhonchi, stridor, chest wall tenderness, accessory muscle use, decreased breath sounds, prolonged expiratory - Cardiovascular Cardiovascular Exam: Present: regular rate, normal rhythm, normal heart sounds - GI/Abdominal GI/Abdominal exam: Present: soft, normal bowel sounds. Absent: tenderness, guarding, rebound, rigid - Extremities Exam Extremities exam: Present: normal inspection, full ROM, normal capillary refill. Absent: tenderness, pedal edema, joint swelling, calf tenderness - Back Exam Back exam: Present: normal inspection, full ROM. Absent: tenderness - Neurological Exam Neurological exam: Present: alert, oriented X3, normal gait, reflexes normal. Absent: motor sensory deficit - Psychiatric Psychiatric exam: Present: normal affect, normal mood - Skin Skin exam: Present: warm, dry, intact, normal color. Absent: rash ED Course Vital Signs 04/06/17 04/06/17 09:29 14:01 Temperature 98.9 F Pulse Rate 75 Pulse Rate [ 65 Posterior Bilateral Throughout] Respiratory 18 Rate Respiratory 18 Rate [Posterior Bilateral Throughout] Blood Pressure 119/77 O2 Sat by Pulse 100 Oximetry - Reevaluation(s) Reevaluation #1: 04/06/17 14:09 Patient given DuoNeb times one nebulizer in emergency room. She was also given Deltasone 60 mg by mouth in emergency room for acute bronchitis and cough. Reevaluation #2: 04/06/17 14:19 Up and reevaluation, lungs sounds are clear ED Medical Decision Making - Medical Decision Making ED course: Patient with acute bronchitis and cough. She reported that she was having fever and chills but she did not have any fever today. Patient given DuoNeb times one treatment in emergency room along with Deltasone 60 mg by mouth. Upon reevaluation, lung sound clear. I discussed diagnosis and treatment plan with patient. Patient discharged home in stable condition with prescription for prednisone, Ventolin HFA, Zyrtec and Augmentin ED Disposition Clinical Impression: Cough Acute bronchitis Qualifiers: Bronchitis organism: unspecified organism Qualified Code(s): J20.9 - Acute bronchitis, unspecified Pharyngitis Qualifiers: Pharyngitis/tonsillitis etiology: unspecified etiology Qualified Code(s): J02.9 - Acute pharyngitis, unspecified Disposition: DC- TO HOME OR SELFCARE Is pt being admited?: No Does the pt Need Aspirin: No (f) Condition: Stable Instructions: Acute Bronchitis (ED), Acute Cough (ED) Additional Instructions: Please take antibiotic and other medication as prescribed Increase her fluid intake to 2-3 L of fluid per day. Follow up with [facility] if you do not have a primary care physician Prescriptions: Albuterol Sulfate [Ventolin HFA] 2 puff IH Q4H PRN #1 hfa.aer.ad PRN Reason: WHEEZING AND COUGH Amoxicillin/K Clav Tab [Augmentin 875 mg] 1 tab PO Q12HR #20 tab Cetirizine HCl [ZyrTEC] 10 mg PO QDAY #14 capsule predniSONE [Deltasone] 50 mg PO QDAY #5 tab Referrals: PRIMARY CARE, [Primary Care Provider] - 2-3 Days Forms: Accompanied Note, Work/School Release Form(ED) This documentation as recorded by the JUAN fulton ELIZABETH,accurately reflects the service I personally performed and the decisions made by me,LAURA THOMPSON PA.
[2017-04-06 15:27] VITALS: BP 119/76
== END 2017-04-06 14:25 | disposition home or self-care (01) ==
LOC: ED 09:02
DX: J20.9 Acute bronchitis, unspecified (principal); J02.9 Acute pharyngitis, unspecified; R05 Cough; F20.9 Schizophrenia, unspecified; F31.9 Bipolar disorder, unspecified; F43.10 Post-traumatic stress disorder, unspecified; Z88.8 Allergy status to other drugs, medicaments and biological substances; F17.200 Nicotine dependence, unspecified, uncomplicated
CPT/HCPCS: 94640; 99283; J7512